=== PATIENT | female | born 1985 | race Caucasian/White ===

== ENCOUNTER 2017-06-22 17:00 | Emergency (ER) | payer OTHER ==
[~2017-06-22] VITALS: Ht 165.1 cm; Wt 58.5 kg
[2017-06-22 17:06] VITALS: BP 147/67; PULSE 93; RESP 16; TEMP 98.6; O2SAT 98
[2017-06-22] MEDS ORDERED: ROBA500T PO (17:54)
--- NOTE | 2017-06-22 17:56 | PD ---
HPI Chief Complaint: Pain: Acute or Chronic Time Seen by Provider: 17:41 Travel History International Travel<30 days: No Contact w/Intl Traveler<30days: No Traveled to known affect area: No History of Present Illness HPI 31-year-old female here with upper and lower back pain times one day. 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 She had negative x-rays, CAT scans, MRI after the original injury. She denies any recent injury. She reports the pain reemerged yesterday after she was standing over the sink doing dishes. She denies fever, chills, incontinence, saddle anesthesia, paresthesia or weakness of the extremities. Symptom severity is mild to moderate. Aggravated by movement slightly relieved with rest. PFSH Past Medical History Medical History: Denies Significant Hx Diminished Hearing: No Immunizations Current: Yes Tetanus Vaccination: < 5 Years Influenza Vaccination: No ?: Not LMP: 06/20/17 Past Surgical History Surgical History: No Previous Surgery Social History Alcohol Use: Yes (occ) Tobacco Use: Yes (5 cigs) Substance Use: No (denies) Allergies-Medications (Allergen,Severity, Reaction): Coded Allergies: naproxen (Verified Allergy, Intermediate, rash, 06/22/17) Reported Meds & Prescriptions Reported Meds & Active Scripts Active Robaxin (Methocarbamol) 500 Mg Tab 500 Mg PO TID Review of Systems Except as stated in HPI: all other systems reviewed are Neg General / Constitutional: No: Fever Physical Exam Narrative GENERAL: Alert and well-appearing 31-year-old female SKIN: Warm and dry. No rash HEAD: Normocephalic. EYES: No injection or drainage. NECK: SupplE. No midline spine tenderness CARDIOVASCULAR: Regular rate and rhythm RESPIRATORY: Breath sounds equal bilaterally. No accessory muscle use. GASTROINTESTINAL: Abdomen soft, non-tender, nondistended. MUSCULOSKELETAL: No cyanosis, or edema. Normal strength and sensation in extremities BACK: Tenderness to the thoracic and lumbar paraspinous musculature. No midline spine tenderness. No CVA tenderness. Data Data Last Documented VS Vital Signs Date Time Temp Pulse Resp B/P (MAP) Pulse Ox O2 Delivery O2 Flow Rate FiO2 06/22/17 17:06 98.6 93 16 147/67 (93) 98 Orders Orders Diazepam (Valium) (06/22/17 18:00) [facility] Medical Decision Making Medical Screen Exam Complete: Yes Emergency Medical Condition: Yes Differential Diagnosis Upper/lower back strain, herniated disc, very unlikely spinal fracture Narrative Course 31-year-old female here with upper and lower back pain times one day. 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 She had negative x-rays, CAT scans, MRI after the original injury. On exam she has lumbar paraspinous muscle tenderness. She is reporting severe muscle spasms. She appears anxious. Her vital signs are stable. She was given 1 dose of Valium for muscle spasms and had significant improvement. She'll be discharged home with prescription for muscle relaxers. Diagnosis Primary Impression: Back pain Qualified Codes: M54.9 - Dorsalgia, unspecified Referrals: Primary Care Physician Additional Instructions: Take Tylenol or ibuprofen as needed for pain. Muscle relaxers as needed for muscle spasm. Follow-up with the [facility]. Scripts Methocarbamol (Robaxin) 500 Mg Tab 500 MG PO TID for Muscle Spasm, #12 TAB 0 Refills Prov: Dianna Salguero 06/22/17 Disposition: 01 DISCHARGE HOME Condition: Stable Dianna Salguero Jun 22, 2017 17:56
[2017-06-22] MEDS ORDERED: DIAZEPAM 10 MG TAB PO ONE (18:00)
[2017-06-22] MEDS ORDERED: DIAZEPAM 5 MG TAB PO ONE (18:00)
== END 2017-06-22 18:05 | disposition home or self-care (01) ==
LOC: PHEFT 17:00
DX: M54.5 Low back pain (principal); G89.29 Other chronic pain; M62.830 Muscle spasm of back; Z72.0 Tobacco use
CPT/HCPCS: 99283

== ENCOUNTER 2017-08-22 18:28 | Emergency (ER) | payer SELFPAY ==
[~2017-08-22] VITALS: Ht 165.1 cm; Wt 60.0 kg
[~2017-08-22 18:28] MED LIST: ROBA500T PO
[2017-08-22 18:31] VITALS: PULSE 68; RESP 16; TEMP 98.2; O2SAT 99
--- NOTE | 2017-08-22 19:47 | PD ---
HPI Chief Complaint: Musculoskeletal Complaint Time Seen by Provider: 19:13 Travel History International Travel<30 days: No Contact w/Intl Traveler<30days: No Traveled to known affect area: No History of Present Illness HPI This is a 31-year-old female here with left lateral rib pain 1 day. She reports she bent over to put on her socks this morning and felt sharp pain and crunching sensation in her left ribs. Since that time she has had pain with deep inspiration and twisting of the torso. Symptom severity is moderate. Pain is slightly improved with shallow breathing and rest. She denies chest pain, palpitations, shortness of breath. PFSH Past Medical History Medical History: Denies Significant Hx Diminished Hearing: No Psychiatric: Yes (manic depressive bipolar) Immunizations Current: Yes Tetanus Vaccination: < 5 Years Influenza Vaccination: No ?: Not LMP: ONE WEEK AGO Past Surgical History Surgical History: No Previous Surgery Social History Alcohol Use: Yes (occ) Tobacco Use: Yes (5 cigs) Substance Use: No (denies) Allergies-Medications (Allergen,Severity, Reaction): Coded Allergies: naproxen (Verified Allergy, Intermediate, rash, 08/22/17) Reported Meds & Prescriptions Reported Meds & Active Scripts Active No Active Prescriptions or Reported Medications Review of Systems Except as stated in HPI: all other systems reviewed are Neg General / Constitutional: No: Fever Eyes: No: Visual changes HENT: No: Headaches Cardiovascular: No: Chest Pain or Discomfort Respiratory: Positive: Other (Rib pain left), No: Shortness of Breath Gastrointestinal: No: Abdominal Pain Genitourinary: No: Dysuria Physical Exam Narrative GENERAL: Alert and well-appearing 31-year-old female. No distress. SKIN: Warm and dry. HEAD: Normocephalic. EYES: No scleral icterus. No injection or drainage. NECK: Supple, trachea midline. CARDIOVASCULAR: Regular rate and rhythm without murmurs, gallops, or rubs. Chest wall: +TTP left anterior/lateral ribs. No palpable fracture. No crepitus. RESPIRATORY: Breath sounds equal bilaterally. No accessory muscle use. Even and equal chest rise GASTROINTESTINAL: Abdomen soft, non-tender, nondistended. MUSCULOSKELETAL: No cyanosis, or edema. BACK: Nontender without obvious deformity. No CVA tenderness. Data Data Last Documented VS Vital Signs Date Time Temp Pulse Resp B/P (MAP) Pulse Ox O2 Delivery O2 Flow Rate FiO2 08/22/17 18:31 98.2 68 16 99 Orders Orders Chest, Single Ap (08/22/17 ) [facility] Medical Decision Making Medical Screen Exam Complete: Yes Emergency Medical Condition: Yes Differential Diagnosis Rib fracture, pneumothorax, thoracic strain Narrative Course 31-year-old female here with left rib pain. She is well-appearing. No respiratory distress. Chest x-ray negative for rib fracture, pneumothorax. Of note patient has Naprosyn listed as an allergy. She reports that she takes ibuprofen regularly Diagnosis Primary Impression: Strain of thoracic region Qualified Codes: S29.019A - Strain of muscle and tendon of unspecified wall of thorax, initial encounter Referrals: Primary Care Physician Additional Instructions: Tylenol and ibuprofen as needed for pain. Avoid heavy lifting or strenuous activity. Follow up with your primary doctor Disposition: 01 DISCHARGE HOME Condition: Stable Dianna Salguero Aug 22, 2017 19:47
--- NOTE | 2017-08-22 20:24 | RADRPT ---
EXAM DATE/TIME: 08/22/2017 20:06 [facility] COMPARISON: No previous studies available for comparison. INDICATIONS : Left chest pain. MEDICAL HISTORY : None. SURGICAL HISTORY : None. ENCOUNTER: Initial ACUITY: 1 day PAIN SCORE: 7/10 LOCATION: Left chest FINDINGS: A single view of the chest demonstrates the lungs to be symmetrically aerated without evidence of mas s, infiltrate or effusion. The cardiomediastinal contours are unremarkable. Osseous structures are intact. CONCLUSION: No acute disease. Rafael Christianson MD on August 22, 2017 at 20:21 Board Certified Radiologist. This report was verified electronically.
[2017-08-22] MEDS ORDERED: ROBA500T PO (20:32)
[2017-08-22 20:47] VITALS: BP 132/86
== END 2017-08-22 20:48 | disposition home or self-care (01) ==
LOC: PHEFT 18:28
DX: S29.012A Strain of muscle and tendon of back wall of thorax, initial encounter (principal); X58.XXXA Exposure to other specified factors, initial encounter; F31.9 Bipolar disorder, unspecified; F17.200 Nicotine dependence, unspecified, uncomplicated
CPT/HCPCS: 71045; 99283

== ENCOUNTER 2017-09-02 02:32 | Emergency (ER) | payer OTHER ==
[~2017-09-02] VITALS: Ht 165.1 cm; Wt 58.6 kg
[2017-09-02 02:41] VITALS: BP 120/75; PULSE 105; RESP 20; TEMP 98.9; O2SAT 99
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
[2017-09-02 03:45] LABS: AUTOMATED NEUTROPHIL # 5.2 TH/MM3 (1.8-7.7); BASOPHIL # 0.1 TH/MM3 (0-0.2); EOSINOPHIL # 0.2 TH/MM3 (0-0.4); EOSINOPHIL % 2.7 % (0.0-4.0); HEMATOCRIT 32.2 % (35.0-46.0); LYMPH % 19.3 % (9.0-44.0); LYMPHOCYTE # 1.4 TH/MM3 (1.0-4.8); MEAN CELL VOLUME 64.3 FL (80.0-100.0); MEAN CORPUSCULAR HGB CONC 31.1 % (32.0-36.0); MONO % 4.4 % (0.0-8.0); MONOCYTE # 0.3 TH/MM3 (0-0.9); NEUT % 72.6 % (16.0-70.0); PLATELET COUNT 363 TH/MM3 (150-450); RED BLOOD COUNT 5.01 MIL/MM3 (4.00-5.30); RED CELL DISTRIBUTION WIDTH 17.9 % (11.6-17.2); WHITE BLOOD COUNT 7.1 TH/MM3 (4.0-11.0)
[2017-09-02 03:46] LABS: BICARBONATE 17.5 MEQ/L (21.0-32.0); CALCIUM 8.5 MG/DL (8.5-10.1); CREATININE 1.06 MG/DL (0.50-1.00)
[2017-09-02 06:09] VITALS: BP 108/63; PULSE 79; RESP 15; TEMP 98.3; O2SAT 99
[2017-09-02 08:38] VITALS: BP 109/58; PULSE 75; RESP 18; O2SAT 97
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
--- NOTE | 2017-09-02 12:51 | RADRPT ---
EXAM DATE/TIME: 09/02/2017 12:26 [place] COMPARISON: No previous studies available for comparison. INDICATIONS : Foot and ankle slammed in car door this morning. MEDICAL HISTORY : None. SURGICAL HISTORY : None. ENCOUNTER: Initial ACUITY: 1 day PAIN SCORE: 10/10 LOCATION: Left Ankle FINDINGS: Three view exam was performed of the left ankle. The bony structures are in normal alignment. No ev idence of fracture, dislocation, or soft tissue swelling. The ankle mortise is intact. No radiopaqu e foreign bodies are seen. Bony mineralization is normal. CONCLUSION: Negative trauma study. Jason Brito MD on September 02, 2017 at 12:49 Board Certified Radiologist. This report was verified electronically.
== END 2017-09-02 13:47 | disposition home or self-care (01) ==
LOC: NEPD 02:32
DX: F19.94 Other psychoactive substance use, unspecified with psychoactive substance-induced mood disorder (principal); M79.672 Pain in left foot; F31.9 Bipolar disorder, unspecified
CPT/HCPCS: 73610; 73630; 80048; 80307; 84443; 84703; 85025; 99284; E0113; L1906